=== PATIENT | female | born 2000 | race Caucasian/White ===

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

== ENCOUNTER 2020-07-06 06:21 | Emergency (ER) | payer MEDICAID ==
[~2020-07-06] VITALS: Ht 152.4 cm; Wt 107.8 kg
--- NOTE | 2020-07-06 06:38 | NUR ---
STATES THE PAIN STARTED THIS MORNING ABOUT 20 MINS AGO. SHE SAYS SHE STARTED TO BLEED AND HAS CLOTS COMING OUT
[2020-07-06 09:05] VITALS: BP 129/72
--- NOTE | 2020-07-06 09:06 | NUR ---
BREAKING PRIMARY RN, U/S AT BEDSIDE
== END 2020-07-06 09:44 | disposition home or self-care (01) ==
LOC: ER 06:22
DX: N93.9 Abnormal uterine and vaginal bleeding, unspecified (principal); O20.0 Threatened abortion; Z32.01 Encounter for pregnancy test, result positive; F12.90 Cannabis use, unspecified, uncomplicated; Z72.89 Other problems related to lifestyle; Z59.0 Homelessness; Z56.0 Unemployment, unspecified; Z79.899 Other long term (current) drug therapy
CPT/HCPCS: 36415; 76801; 84702; 93976; 99284